=== PATIENT | female | born 1965 | race Caucasian/White ===

== ENCOUNTER 2018-03-26 05:42 | Observation (INO) ==
[2018-03-26] MEDS ORDERED: Metoprolol Tartrate 25 MG Tablet PO SCH (06:15)
[2018-03-26] MEDS ORDERED: Chlorhexidine Gluconate 2% 1 Pack (2 Cloths) TOPICAL SCH (06:15)
[2018-03-26] MEDS ORDERED: Sugammadex Inj 200 MG/2 ML Vial IV.PUSH ONE (06:37)
[2018-03-26] MEDS ORDERED: fentaNYL Citrate Inj 250 MCG/5 ML Ampul ONE (06:38)
[2018-03-26] MEDS ORDERED: Sodium Chlor 0.9% Inj 500 ML IV.SIG SCH (07:00)
[2018-03-26] MEDS ORDERED: ceFAZolin 2 GM Premix Inj 2 GM/50 ML PIGGYBACK IV.SIG SCH (07:00)
[2018-03-26] MEDS ORDERED: Bupivacaine PF 0.25% Inj 30 ML Vial ONE (07:06)
[2018-03-26] MEDS ORDERED: Famotidine PF Inj 20 MG/2 ML Vial ONE (07:26)
[2018-03-26] MEDS ORDERED: Ketamine Inj 50 MG/5 ML Syringe IV.PUSH ONE (07:37)
[2018-03-26] MEDS ORDERED: Neostigmine Inj 5 MG/5 ML Syringe IV.PUSH ONE (12:00)
[2018-03-26] MEDS ORDERED: Glycopyrrolate Inj 1 MG/5 ML Syringe IV.PUSH ONE (12:00)
[2018-03-26] MEDS ORDERED: Ketorolac Inj 30 MG/ML (IVP) Vial IV.PUSH ONE (12:00)
[2018-03-26] MEDS ORDERED: Phenylephrine/NS 1000 MCG/10ML Syringe IV.PUSH ONE (12:00)
[2018-03-26] MEDS ORDERED: Lidocaine PF 1% Inj 5 ML Syringe INFILTRATN ONE (12:00)
[2018-03-26] MEDS ORDERED: Ibuprofen 600 MG Tablet PO PRN (13:05)
[2018-03-26] MEDS ORDERED: Morphine Inj 4 MG/ML Vial ONE (13:44)
[2018-03-26] MEDS ORDERED: Morphine Sulfate Inj 2 MG/ML Vial ONE (14:07)
--- NOTE | 2018-03-26 14:11 | MP ---
cc: Zach Quiroga MD DATE OF OPERATION: 03/26/2018 PREOPERATIVE DIAGNOSES: The patient with symptomatic large uterine fibroids, menorrhagia, and chronic pelvic pain. PROCEDURE PERFORMED: Exam under anesthesia, diagnostic laparoscopy with operative robotic-assisted total hysterectomy with lysis of adhesions, bilateral salpingo-oophorectomy, supracervical hysterectomy. POSTOPERATIVE DIAGNOSES: The patient with symptomatic large uterine fibroids, menorrhagia, and chronic pelvic pain. SURGEON: Zach Quiroga MD ANESTHESIA: General with endotracheal intubation. ESTIMATED BLOOD LOSS: 150 mL. DRAINS: Sin to gravity. OPERATIVE FINDINGS: The patient had a very large uterus, approximately 20 weeks in size. Both ovaries had a normal appearance. The right ovary was significantly larger than the left, but no focal surface abnormality. There were omental adhesions involving the anterior abdominal wall of the uterus. Otherwise, the remainder of the pelvic anatomy and upper quadrants appeared normal, liver edge, gallbladder, large and small bowel. INDICATION FOR PROCEDURE: The patient with debilitating pelvic pain due to large volume of uterine fibroids. The patient with recurrent episodes of menorrhagia. Previous hysteroscopic exam and biopsy were benign. The patient was given the option for treatment and elected for definitive surgery with hysterectomy, as well as removing both ovaries, given her stated age of 52 years. The patient is postmenopausal. Preoperatively, she received Ancef 2 grams prophylactically. DESCRIPTION OF PROCEDURE: The patient was taken to the operating room in stable condition and underwent general anesthesia with endotracheal intubation. The patient was carefully positioned in dorsal lithotomy position using Reji stirrups on the lower extremities with sequential was placed for VTE prophylaxis. She was prepped and draped. Timeout was conducted, agreed by all present in the room. Sin catheter was then inserted via sterile technique. The patient's exam revealed a very firm, large uterus, estimated 20-week size. Mobility in the lower uterine segment was limited. The cervix was small. A small VCare device was used to manipulate the cervix and uterus. Once this was placed, the gloves were changed. The abdomen was examined. She had a previous Pfannenstiel incision scar that was well healed. The patient had moderate obesity of her lower abdomen. The umbilical port site was chosen first, injected with 0.25% plain Marcaine and then a Veress needle was inserted to insufflate at low pressure. Once approximately 2.5 L of CO2 were insufflated, a 5 mm trocar was placed infraumbilical placement. Direct entry into the peritoneal cavity was accomplished. Visualization of the findings are stated above. The omental adhesions were midline just below the mid abdomen, below the umbilicus, down to the upper pelvis. These were lysed by using monopolar scissors using low energy cutting 30 coag. The scissors were placed through an accessory port on the patient's right flank. Once the adhesions were taken down, the remainder of the port sites were placed, injecting with 0.25% plain Marcaine. The camera port was a 12 mm port placed above the umbilicus about 5 cm and then 8 mm ports were placed, 2 on the right and 1 on the left. The umbilical port was removed to accommodate the camera port. The patient was then placed in steep Trendelenburg positioning and then the [employer] patient cart was side docked with the #2 arm on the left and the #1 and #3 on the right. Monopolar scissors were attached to the 2 and a bipolar fenestrated grasper and a fenestrated grasper were placed respectively into 1 and 3. A 30-degree camera lens was used due to the volume and size of the uterus. No collisions were encountered with the operative arms. At this point, the attention was directed to the surgeon's cart, where articulation and manipulation of the operative arms was noted. Anatomic review was made. The volume of the uterus was significant, requiring careful manipulation to perform the dissection. The dissection initiated by opening the round ligament on the left side and then taking down the retroperitoneal space and then identifying the bladder reflection and then taking out laterally, opening the broad ligament. The patient's left ovary and tube were identified and isolated, skeletonizing the infundibulopelvic vessels. The ureter was well out of the way of the operative field. It was visualized easily. It was not involved in the dissection. The vessels were made hemostatic by monopolar and bipolar energy and once the pedicle was secured, this allowed dissection of the uterine artery and vein on the left side. This was complicated by the positioning and the volume of the uterus again, but the decision was to proceed with a supracervical due to the limitations of the laparoscopic approach with the patient's large uterus. The contralateral side was then dissected in a similar fashion, identifying the infundibulopelvic vessels, skeletonizing them appropriately, ligating them hemostatically, again paying careful attention to adjacent vital structures and the ureter was peristalsing normally both on the right and the left. The bladder reflection was taken down on the right side and then the vessels were easily skeletonized and ligated. This allowed amputation at the lower uterine segment, transecting the cervix across in a hemostatic fashion. The previously placed VCare manipulator was removed prior to transection. Once the uterus was secured and removed, the [facility] [employer] patient cart was undocked. Attention was directed to straight laparoscopy using a 5 mm camera as before and then the uterus was then morcellated with a handheld morcellator. Both adnexa were removed separately, identifying the right and the left and then the uterine volume was removed in a serial fashion. All tissue fragments were identified and easily visualized, removing them and completing the removal of the uterine specimen. Copious irrigation was used to irrigate the pelvis and the upper quadrants. This was accomplished by placing the patient in Trendelenburg and reverse Trendelenburg. Once aspiration of all free fluid was made and confirmation of removal of all tissue fragments, re-examination of the pelvis was dry. The cervical stump was intact. No active bleeding. No hematoma. Both ureters were peristalsing normally and the bladder was draining clear urine. At the completion of the procedure, the umbilical port site was closed with a CrossBow with #1 Vicryl suture and then the skin incisions were closed with a subcuticular stitch of 4-0 Monocryl. Steri-Strips were applied to the incisions. There was no vaginal bleeding noted, and again clear urine was draining through the Sin throughout the case. At the completion of the case, the patient was stable. She was taken to the recovery on room air, extubated. Again, the final count was correct. MD LAURA Schulz/ALEXANDRU , 01:27 PM , 01:41 PM
[2018-03-26] MEDS ORDERED: Ketorolac Inj 30 MG/ML (IVP) Vial ONE (14:18)
[2018-03-26] MEDS: Simethicone 80 MG Chew Tablet PO PRN ×2 (17:30→22:22)
[2018-03-26] MEDS: HYDROmorphone PF Inj 2 MG/ML Vial IV.PUSH PRN (17:30)
[2018-03-26] MEDS ORDERED: Zolpidem Tartrate 5 MG Tablet PO PRN (21:00)
[2018-03-26] MEDS: Ketorolac Inj 30 MG/ML (IVP) Vial IV.PUSH PRN (22:08)
[2018-03-26] MEDS: Docusate Sodium 100 MG Capsule PO SCH (22:09)
[2018-03-27] MEDS: Ketorolac Inj 30 MG/ML (IVP) Vial IV.PUSH PRN (04:02)
[2018-03-27] MEDS: Simethicone 80 MG Chew Tablet PO PRN ×2 (04:02→12:39)
[2018-03-27] MEDS: HYDROmorphone PF Inj 2 MG/ML Vial IV.PUSH PRN (05:41)
[2018-03-27 05:58] LABS: Baso % (Auto) 0.4 % (0.0-2.0); Eos % (Auto) 0.3 % (0.0-4.0); Hematocrit 38.8 % (35.0-46.0); Hemoglobin 13.2 gm/dL (11.6-15.3); Lymph # (Auto) 2.1 th/mm3 (1.0-4.8); Lymph % (Auto) 25.3 % (9.0-44.0); Mean Corpuscular HGB Conc 33.9 % (32.0-36.0); Mean Corpuscular Volume 94.5 fL (80.0-100.0); Mean Platelet Volume 8.9 fL (7.0-11.0); Mono # (Auto) 0.8 th/mm3 (0.0-0.9); Mono % (Auto) 9.3 % (0.0-8.0); Neut # (Auto) 5.4 th/mm3 (1.8-7.7); Neut % (Auto) 64.7 % (16.0-70.0); Platelet Count 223 th/mm3 (150-450); Red Blood Count 4.11 mil/mm3 (4.00-5.30); Red Cell Distribution Width 14.1 % (11.6-17.2); White Blood Count 8.4 th/mm3 (4.0-11.0)
[2018-03-27 06:02] LABS: Calcium 8.2 mg/dL (8.5-10.1); Carbon Dioxide 31.1 meq/L (21.0-32.0); Potassium 4.8 meq/L (3.5-5.1)
[2018-03-27] MEDS: Docusate Sodium 100 MG Capsule PO SCH (08:40)
[2018-03-27] MEDS ORDERED: Lisinopril 10 MG Tablet PO SCH (09:00)
--- NOTE | 2018-03-27 10:34 | P.PNOB ---
Assessment and Plan - Postoperative Procedures Operation Date: 03/26/18 07:56 Actual Procedures Side Surgeon p EVALUATION UNDER ANESTHESIA, ROBOT ASSISTED LAPAROSCOPIC TOTAL HYSTERECTOMY, BILATERAL S&O Bilateral Zach Quiroga MD Postoperative day: 1 (POD#1, doing well, awaiting spontaneous void then can go home, RTO in 1 week) Postoperative status: doing well, urinary retention (voiding trial inprogress) Postoperative plan: routine post-op care, ambulate, voiding trials, discharge - Time Spent With Patient Total time spent is greater than 50% in coordination of care (as documented) at patient's floor/unit and/or counseling patient: 25 - 35 minutes Subjective Subjective: patient reports feeling better, patient desires discharge Physical Exam Vital signs: Temp Pulse Resp BP Pulse Ox 99.0 F 83 18 124/80 93 L 03/27/18 08:29 03/27/18 08:29 03/27/18 08:29 03/27/18 08:29 03/27/18 08:29 - Constitutional no acute distress - Routine HEENT Exam Head: Absent: facial swelling Eye: Present: EOMI, PERRL - Routine Chest/Breast/Axilla Exam Chest wall: Absent: tenderness - Routine Respiratory Exam Absent: accessory muscle use, respiratory distress, rhonchi, stridor, wheezes - Routine Abdominal Exam Present: soft, normoactive bowel sounds, surgical scars (intact ,normal postop day #1). Absent: tenderness, distended, rebound, guarding - Routine Extremities Exam Present: full ROM. Absent: cyanosis, edema, calf tenderness, palpable cord, Ada's sign - Routine Skin Exam Present: intact. Absent: rash - Urinary Catheter Management 3-way Urethral Cath placed during this visit: yes Urethral indwelling: No Insertion date: 03/26/18 Insertion time: 08:30 400 Cath placed during this visit: yes, but has since been removed by the nurse Insertion date: 03/27/18 Removal date: 03/27/18 Removal time: 05:20 Results - Labs CBC & Chem 7: 03/27/18 05:13 03/27/18 05:13 Labs: Laboratory Results - last 24 hr 03/27/18 03/27/18 05:13 05:13 WBC 8.4 RBC 4.11 Hgb 13.2 Hct 38.8 MCV 94.5 MCH 32.0 MCHC 33.9 RDW 14.1 Plt Count 223 MPV 8.9 Neut % (Auto) 64.7 Lymph % (Auto) 25.3 [place] % (Auto) 9.3 H Eos % (Auto) 0.3 Baso % (Auto) 0.4 Neut # (Auto) 5.4 Lymph # (Auto) 2.1 [place] # (Auto) 0.8 Eos # (Auto) 0.0 Baso # (Auto) 0.0 WBC Differential . Differential Comment Auto diff final Sodium 141 Potassium 4.8 Chloride 105 Carbon Dioxide 31.1 Anion Gap 5 BUN 12 Creatinine 0.70 Estimated GFR 88 L Random Glucose 111 H Calcium 8.2 L
== END 2018-03-27 13:22 | disposition home or self-care (01) ==
LOC: H1EA 05:42 → HSDC 05:42 → HSDI 05:42 → H1EA 14:50
PROVIDERS: ADMIT Obstetrics & Gynecology; ATTEND Obstetrics & Gynecology
PROC: [UNRECOGNIZED PROCEDURE] (2018-03-26 07:56)